=== PATIENT | female | born 1970 | race Caucasian/White ===

== ENCOUNTER 2023-10-04 09:50 | Outpatient (REF) | payer OTHER, SELFPAY ==
[2023-10-04 10:57] VITALS: BMI 35.0
[2023-10-04 11:03] VITALS: BP 128/72; PULSE 71; RESP 16; TEMP 36.6; O2SAT 98
[2023-10-04 12:37] LABS: HIV AB/AG Nonreactive (Nonreactive); HIV Num 1 0.18 S/CO (0.00-0.99)
[2023-10-04 12:38] LABS: HIV AB/AG Nonreactive (Nonreactive); HIV Num 1 0.07 S/CO (0.00-0.99)
[2023-10-04 12:39] LABS: HBS Num1 37.39 mIU/mL (0-7.99); HBc Num1 0.12 S/CO (0.00-0.79); HBsAGNum1 0.31 S/CO (0.00-0.99); Hepatitis B Core Antibody Nonreactive (Nonreactive); Hepatitis B Surface Antigen Negative (Negative); ~HepC Num1 0.11 S/CO (0.00-0.79); ~Hepatitis B Surface Antibody REACTIVE (Nonreactive); ~Hepatitis C Antibody Nonreactive (Nonreactive)
== END 2023-10-04 09:51 | disposition home or self-care (01) ==
LOC: HO.MS 09:50
PROVIDERS: PCP Internal Medicine; Visit Provider Ophthalmology
PROC: (CPT 11441; principal; 2023-10-04 14:00)
DX: D22.121 Melanocytic nevi of left upper eyelid, including canthus (principal); L98.9 Disorder of the skin and subcutaneous tissue, unspecified; H02.9 Unspecified disorder of eyelid
CPT/HCPCS: 11441; 36415; 86704; 86706; 86803; 87340; 87389; 88304; 88305; 88341; 88342